=== PATIENT | female | born 1960 | race Hispanic/Latino ===

== ENCOUNTER 2016-08-28 15:37 | Inpatient (IN) | payer MEDICAID ==
[~2016-08-28] VITALS: Ht 144.8 cm; Wt 57.8 kg
[2016-08-28 15:46] VITALS: BP 159/88; PULSE 74; RESP 16; O2SAT 98
[2016-08-28 16:00] VITALS: BP 135/61; PULSE 79; RESP 18
[2016-08-28 16:41] LABS: BASOPHILS % (AUTO) 0.3 % (0-3); MONOCYTES % (AUTO) 7.4 % (4-12); Mean Corpuscular Hemoglobin 29.2 pg (27.0-35.0); Mean Corpuscular Volume 84.7 fL (81-100); NEUTROPHILS % (AUTO) 61.3 % (40-74); Platelet Count 300 bil/L (150-400)
--- NOTE | 2016-08-28 16:41 | DRSVH ---
PROCEDURE: X-RAY CHEST ONE VIEW, PORTABLE ([id number]) INDICATIONS: chest pain TECHNIQUE: One view of the chest was acquired. COMPARISON: 11/19/2008 FINDINGS: Surgical changes and devices: None. Lungs and pleura: No pleural effusions or pneumothorax. Eventration right hemidiaphragm. Lungs are c lear. Mediastinum: Mediastinal contours appear normal. Heart size is normal. Bones and chest wall: No suspicious bony lesions. Overlying soft tissues appear unremarkable. IMPRESSION: No acute cardiopulmonary abnormality Dictated by: Ever Gonzalez M.D. on 08/28/2016 at 16:39 Approved by: Ever Gonzalez M.D. on 08/28/2016 at 16:39
[2016-08-28 17:02] LABS: TROPONIN T < 0.010 ug/L (0.0-0.011)
[2016-08-28 17:12] LABS: Magnesium 1.7 mg/dL (1.6-2.6)
--- NOTE | 2016-08-28 17:26 | ED.REPORT ---
HPI-Chest Pain 40 and Over Date of Service Aug 28, 2016 ED Provider: Rogers Mccormack MD Pt is a 55 y.o. Urdu-speaking female with a hx of DM, hypothyroidism, and HLD who presents to the ED c/o intermittent chest pain, 3 episodes lasting approximately 5 minutes, onset 3 days ago. Pt states most recent episode was today around 1300 and occurred while she was walking up stairs. She is not currently experiencing any chest pain. She denies SOB, abdominal pain, nausea, vomiting, diarrhea, and cough. She also denies any heart hx.. Nursing Notes Stated Complaint: CHEST PAIN Chief Complaint: Chest Pain Nursing Notes Reviewed: Yes Allergies: Coded Allergies: No Known Allergies (Unverified , 08/28/16) Scheduled Cholecalciferol (Vitamin D3) (Vitamin D3) 2,000 Unit Capsule 2,000 UNITS PO DAILY Glipizide (Glipizide) 5 Mg Tablet 5 MG PO QAM Levothyroxine (Levothyroxine) 137 Mcg Tablet 137 MCG PO DAILY Lovastatin (Lovastatin) 40 Mg Tablet 40 MG PO QPM Metformin (Glucophage) 1,000 Mg Tablet 1,000 MG PO BIDWM General Time Seen by MD: 17:20 Chief Complaint Chest pain Hx Obtained From: Patient Arrived By: Walk-in Sudden in Onset?: Yes Symptom Duration: 1 - 15 minutes Location: : Substernal Quality: Painful Severity: Current: No pain currently Recent Healthcare: No recent doctor visit, No recent hospitalization Similar Sx Previous: No Past Medical History Past Medical History Reports: Diabetes mellitus, Hyperlipidemia Reports: Thyroid disease Past Surgical History None reported Ambulatory Status Independent Review of Systems Respiratory: Denies: Non-productive cough, Shortness of breath Cardiovascular: Reports: Chest pain GI: Denies: Abdominal pain, Diarrhea, Nausea, Vomiting Complete sys rev & neg: except as marked. Physical Exam Initial Vital Signs Vital Signs (First) Date Time Temp Pulse Resp B/P Pulse Ox O2 Delivery O2 Flow Rate FiO2 08/28/16 15:46 37.3 74 16 159/88 98 Room Air Initial VS: Reviewed Head / Eyes: Atraumatic, Normocephalic Extremities: Vascular intact, Neuro intact Skin: Warm, Dry, No cyanosis Neurologic: Alert, Oriented, Nonfocal Psychiatric: Mood/affect normal, Behavior normal, Normal thought content General/Constitutional: Awake, Alert, No acute distress, Well appearing, Well developed, Well hydrated, Well nourished, Not toxic appearing Respiratory / Chest: Atraumatic, Breath sounds NL, Breath sounds = bilat, No respiratory distress, No rales, No rhonchi, No wheezing, No stridor, No chest tenderness Cardiovascular: Heart rate NL, Regular rhythm, Heart sounds NL, No gallop, No murmurs, No rubs, Peripheral circulation NL No low Abdomen: Atraumatic, Soft, Non-tender, No distention Interpretation & Diagnostics Lab Results Interpretation Result Diagram: 08/28/16 1619 08/28/16 1619 Test 08/28/16 16:19 White Blood Count 7.0th/mm3 (3.8-10.1) Red Blood Count 4.90mil/mm3 (3.90-5.20) Hemoglobin 14.3g/dL (12.0-15.6) Hematocrit 41.5% (35.0-46.0) Mean Corpuscular Volume 84.7fL (81-100) Mean Corpuscular Hemoglobin 29.2pg (27.0-35.0) Mean Corpuscular Hemoglobin Concent 34.5% (32.0-37.0) Red Cell Distribution Width 12.4% (12.3-15.4) Platelet Count 300bil/L (150-400) Neutrophils (%) (Auto) 61.3% (40-74) Lymphocytes (%) (Auto) 28.6% (14-46) Monocytes (%) (Auto) 7.4% (4-12) Eosinophils (%) (Auto) 2.0% (0-5) Basophils (%) (Auto) 0.3% (0-3) Sodium Level 138mEq/L (134-144) Potassium Level 4.2mEq/L (3.5-5.2) Chloride Level 96mEq/L (97-108) Carbon Dioxide Level 27mmol/L (18-29) Blood Urea Nitrogen 9mg/dL (6-24) Creatinine 0.45mg/dL (0.57-1.00) Estimat Glomerular Filtration Rate 207mL/min (>59) Glucose Level 252mg/dL (60-99) Calcium Level 10.8mg/dL (8.5-10.1) Total Bilirubin 0.2mg/dL (0.0-1.2) Aspartate Amino Transf (AST/SGOT) 19U/L (0-50) Alanine Aminotransferase (ALT/SGPT) 31U/L (0-32) Alkaline Phosphatase 95U/L (25-150) Total Protein 8.0g/dL (6.4-8.4) Albumin 4.8g/dL (3.4-5.0) Hold [place]o Top Tube Received (Received) Point of Care Testing: Troponin normal General Lab Results Interp 1: CMP normal except (Glucose), CBC normal ECG Interpretation ECG Interpretation: No ST elevation Inferior Q waves T wave inversion in V1-V2 No prior ECG for comparison Time: 17:27 Interpreted by: ED physician Normal ECG Interpretation: Normal rate (73), Normal sinus rhythm X-Ray Chest Interpretation Chest Xray Interpretation: IMPRESSION: No acute cardiopulmonary abnormality Dictated by: Ever Gonzalez M.D. on 08/28/2016 at 16:39 Approved by: Ever Gonzalez M.D. on 08/28/2016 at 16:39 Re-Eval/Medical Decision Med Decision/Clinical Course In summary, the patient is a 55-year-old female with a history of type II diabetes, hyperlipidemia and hypothyroidism who presents to the emergency department for evaluation of several episodes of crushing/tearing substernal chest pain occurring in the setting of exertion and walking upstairs. Upon arrival to the emergency department she is afebrile, hemodynamically stable and without any active chest pain. EKG and chest x-ray were interpreted by myself as documented above. Laboratory studies notable as below: CBC unremarkable Glucose 252, CMP otherwise unremarkable Troponin negative At this time, the cause of the patient's chest pain is unclear. Her chest pain is not reproducible with palpation of the chest wall nor is her history suggestive of musculoskeletal chest pain. She has no recent major risk factors for pulmonary embolism nor is her presentation suggestive thereof. The nature of her pain is somewhat concerning for cardiac etiologies. She is at higher risk from a cardiac standpoint given her age, history of diabetes and history of hyperlipidemia. Initial screening EKG and troponin are negative. That being said she has had multiple bouts of severe chest pain occurring in the setting of exertion and I feel that she warrants admission for further workup of acute coronary syndrome and possible stress testing. The patient remained chest pain-free and hemodynamically stable. She was given 324 mg of aspirin. She was discussed with the admitting hospitalist and transferred in stable condition. Source of Hx: Old records Consultation : Referral / Consult Name: Brady Mata MD Consulted With: Hospitalist Call Returned at: 19:11 Note: Discussed pt condition, accepts admit. Counseled Regarding: Diagnosis, Lab results, Need for follow-up, When/why to return to ED Discharge & Departure Primary Impression: Exertional chest pain Additional Impressions: History of type 2 diabetes mellitus History of hyperlipidemia Disposition: Home Discharge Condition All VS Reviewed: Yes Condition: Stable Referrals: [facility] (PCP) Geremias Attestation Portions of this note were transcribed by Diann Mcpherson. I, Dr. Mccormack personally performed the history, physical exam and medical decision-making; I reviewed and confirmed the accuracy of the information in the transcribed note. Signed by: Geremias Tilley, 08/28/2016 and 1915. copies to: [facility] Rogers Mccormack MD Aug 28, 2016 17:26 DIANN MCPHERSON Aug 28, 2016 17:56 personally performed the history, physical exam and medical decision-making; I reviewed and confirmed the accuracy of the information in the transcribed note. Signed by: Geremias Tilley, 08/28/2016 and 1915. copies to: [facility] Rogers Mccormack MD Aug 28, 2016 17:26 DIANN MCPHERSON Aug 28, 2016 17:56
[2016-08-28] MEDS ORDERED: Ondansetron 2 mg/mL 2 mL Inj IVPUSH PRN (18:30)
[2016-08-28] MEDS ORDERED: Alum-Mag Hydrox-Simeth 30 mL Suspension PO PRN (18:30)
[2016-08-28] MEDS ORDERED: CHOL200047 PO (18:46)
[2016-08-28] MEDS ORDERED: LOVA40TA PO (18:46)
[2016-08-28] MEDS ORDERED: GLPZ5T PO (18:46)
[2016-08-28] MEDS ORDERED: METF1000 PO (18:46)
[2016-08-28] MEDS ORDERED: LEVO137T2 PO (18:46)
--- NOTE | 2016-08-28 19:14 | PCM.HPMED ---
Subjective Date of Service Aug 28, 2016 Primary Provider: Admitting Physician: [facility] Physician: Chief Complaint: Chest pain History of Present Illness: 55-year-old Faroese-speaking female whom I interviewed with the help of video chopped strand operator history of diabetes, hypothyroidism, hyperlipidemia who presents with 3 days of intermittent chest pain. When I press her to determine whether it is when she is walking or when she is sitting or when she gets up, she states that it does not matter. Sometimes it wakes her up from her sleep that was on Wednesday, at times happens when she gets up or she feels it coming on and it can happen when she is walking but is not consistently there when she is ambulating either. The episodes are retrosternal dull not radiating anywhere and not not associated with nausea, vomiting or diaphoresis Review of Systems: Patient denies any other symptoms other than chest pain Gen.: No fevers chills weight loss weight gain Eyes: no visual disturbances or blurring vision HEENT: No nose/throat drainage, no pain in ears or throat, no hearing loss Lymph: No lymph nodes noted Cardiac: , orthopnea, PND, palpitations , pedal edema or dyspnea on exertion, + + chest pain Pulmonary: no cough, wheezing or bringing up of sputum GI: No anorexia nausea vomiting blood or black in the stool : no dysuria hematuria urinary frequency or decrease in urine output Musculoskeletal: Joint swelling no joint pain no new muscle aches or back pain Neuro: No syncope, seizures no loss of consciousness no new focal weakness, numbness or tingling Psychiatric: New new anxiety insomnia or depression Endocrine: No new heat or cold intolerances polyuria or polydipsia Hematology: No lymphadenopathy or easy bleeding or bruising noted skin: No new rashes, stasis dermatitis Allergies Coded Allergies: No Known Allergies (Unverified , 08/28/16) Home Medications Scheduled Cholecalciferol (Vitamin D3) (Vitamin D3) 2,000 Unit Capsule 2,000 UNITS PO DAILY Glipizide (Glipizide) 5 Mg Tablet 5 MG PO QAM Levothyroxine (Levothyroxine) 137 Mcg Tablet 137 MCG PO DAILY Lovastatin (Lovastatin) 40 Mg Tablet 40 MG PO QPM Metformin (Glucophage) 1,000 Mg Tablet 1,000 MG PO BIDWM PMH Past Medical History Reports: Diabetes mellitus, Hyperlipidemia Reports: Thyroid disease History of dysphagia got a barium swallow in January 2016 Past Surgical History None reported Ambulatory Status Independent Family History No known history of early heart disease or cancer in her family Exam Vital Signs Vital Sign - Last Date Time Temp Pulse Resp B/P Pulse Ox O2 Delivery O2 Flow Rate FiO2 08/28/16 16:00 79 18 135/61 08/28/16 15:46 37.3 98 Room Air Exam Gen.- A+ O 3 no apparent distress. Mildly obese female Eyes- open conjunctiva clear, pupils equal nonicteric Mouth- oral mucosa moist, no exudate ENT- ears normal, nose normal Neck- supple/trach midline, JVD less than 8 cm CVS- RRR no murmur or gallop, no edema Lungs CTA, no wheezes or rhonchi history muscle usage GI- NABS/NT soft Musc- moving 4 no obvious deformity Neuro- cranial nerves II through XII intact to gross examination, nonfocal Skin- warm and dry, no rashes/lesions/wounds noted Psych- pleasant and appropriate, Lab and Diagnostics Labs 50 RBCs and moderate bacteria and greater than 20 casts Result Diagram: 08/28/16 1619 08/28/16 1619 X-Rays, CTs and MRIs CXR concurrently reviewed by me no acute abnormality 12-lead ECG EKG reviewed by me sinus rhythm rate of 73 QTC 410 ms there is suggestion of possible old inferior infarct perhaps from Q-wave in lead 3 and small Q wave in aVF no acute ST segment changes here Assessment & Plan 55-year-old female interviewed by video chopped strand operator. She gives a history of chest pain worsening for the last 4 days a few episodes lasting up to 5 minutes most severe today. She became scared and came to the hospital. The pain is not definitively exertional it occurs when she sitting down, when she gets up when she is walking she feels it does not make a difference what she is doing. All urine is dirty, it does not appear to be infected and she does not have any complaints or I am not treating it at this time. I believe it advisable to rule out cardiac etiology to this chest pain however it seems increasingly likely that this patient has a GI cause either GERD or esophageal spasm. Chest pain-patient at risk because of long-standing diabetes with atypical chest pain getting Myoview in the a.m. Diabetes-checking a hemoglobin A1c and putting the patient on subcutaneous sliding scale, holding her glyburide and metformin because she is going to be nothing by mouth in the morning. Dysphagia-patient may benefit from a GI consult and/or endoscopy Prophylaxis-DVT SCDs and heparin, GI not indicated Disposition- full code from home Brady Mata MD Aug 28, 2016 19:14
[2016-08-28] MEDS ORDERED: Polyethylene Glycol (PEG) 17 Gm Powder PO PRN (19:25)
[2016-08-28] MEDS ORDERED: Senna-Docusate 8.6-50 mg Tablet PO PRN (19:30)
[2016-08-28 19:45] VITALS: BP 122/62; PULSE 80; RESP 20; O2SAT 98
[2016-08-28 20:26] VITALS: BP 123/75; PULSE 79; RESP 16; O2SAT 95
[2016-08-28 20:44] LABS: Creatine Kinase 45 U/L (21-215); Magnesium 1.6 mg/dL (1.6-2.6)
[2016-08-28 20:52] LABS: TROPONIN T < 0.010 ug/L (0.0-0.011)
[2016-08-28] MEDS: Insulin Human REGular 300 Unit/3 mL Inj SUBQ SCH (21:37)
[2016-08-28] MEDS: 0.9% Sodium Chloride 1,000 ML IV SCH (21:37)
[2016-08-29] VITALS (7 sets, daily range): BP systolic 90–149; BP diastolic 65–93; PULSE 64–82; RESP 16–20; O2SAT 92–96
[2016-08-29] MEDS: Sodium Chloride LOK Flush 10 mL Syringe IVFLUSH SCH ×3 (00:30→16:30)
[2016-08-29 01:59] LABS: Creatine Kinase 33 U/L (21-215)
[2016-08-29] MEDS: Insulin Human REGular 300 Unit/3 mL Inj SUBQ SCH ×2 (02:30→08:14)
[2016-08-29 05:56] LABS: BASOPHILS % (AUTO) 0.3 % (0-3); EOSINOPHILS % (AUTO) 2.6 % (0-5); MONOCYTES % (AUTO) 7.9 % (4-12); Mean Corpuscular Volume 85.8 fL (81-100); NEUTROPHILS % (AUTO) 50.3 % (40-74); Platelet Count 282 bil/L (150-400)
--- NOTE | 2016-08-29 06:33 | NUR ---
Admit Patient admitted to room at 2014. Patient history translated by aerial photograph interpreter. Patient had been having chest pain for the past few days and was more severe today. Pain with and without activity. Pain resolved before arriving at the hospital. Patient alert x 3, denied any CP, SOB, nausea or any other symptoms.
[2016-08-29] MEDS: 0.9% Sodium Chloride 1,000 ML IV SCH ×2 (08:14→23:11)
--- NOTE | 2016-08-29 12:09 | NUR ---
Off Unit: Patient transported off unit to CVL @ approx 1100 accompanied by CVL tech and Petroleum Analyst. dental laboratory technician notified.
[2016-08-29] MEDS ORDERED: Glucose 40% Oral Gel 15 Gm Tube PO PRN (12:35)
[2016-08-29] MEDS: Insulin LISPRO 300 Unit/3 mL Inj SUBQ SCH ×3 (13:14→21:36)
--- NOTE | 2016-08-29 15:06 | NUR ---
Social Work: Screening Data: Pt is a 55 y/o female admitted for chest pain. Pt's PCP is Gladys, pt's insurance is self pay. EMR reviewed, pt discussed in rounds. SAW MAN called [employer] and left a message to make sure that they can see pt regarding self pay status. SAW MAN left a Amharic [facility] application for pt with nursing staff to deliver as pt was with a medical professional when SAW MAN attempted. No further d/c planning needs at this time. SAW MAN will continue to follow if needs arise. Assessment: Pt who is independent at baseline. Plan: Pt will d/c home via POV when medically stable. [facility] application given to pt. No further d/c planning needs at this time. SAW MAN will continue to follow if needs arise. SADIA Simon
--- NOTE | 2016-08-29 15:17 | PCM.PNMED ---
Subjective Date of Service Aug 29, 2016 Subjective pt remained chest pain free overnight Stress test suggestive of ischemic dz per , plan for cath tomorrow or Wednesday Exam Vital Signs Vital Sign - Last Date Time Temp Pulse Resp B/P Pulse Ox O2 Delivery O2 Flow Rate FiO2 08/29/16 10:04 64 08/29/16 05:35 37.0 16 90/ 92 Room Air Intake and Output 08/28/16 08/28/16 08/29/16 Cumulative From/Thru 15:00 23:00 07:00 08/28/16 15:46 - 08/29/16 06:44 Intake Total 707 ml 707 ml Balance 707 ml 707 ml IV Total 707 ml 707 ml Exam NAD, comfortably laying down on the bed no JVD, MMM, no LAD RRR, nl s1, s2 no mrg CTAB, no w,c S,ND,NT,normoactive BS+ warm, no edema, pulses 2/2 IVs and Medications Medications Reviewed: Medications were reviewed in detail Lab and Diagnostics Result Diagram: 08/29/16 0505 08/29/16 0505 X-Rays, CTs and MRIs CXR concurrently reviewed by me no acute abnormality 12-lead ECG [id number] Qwave in III, MURPHY in II,aVF<1mm, TWI v2. Flattened twave v3 Assessment & Plan 55-year-old female with diabetes, hyperlipidemia, no prior CAD presented with 2 episode of chest pain, each one lasted 5 Minutes spontaneously resolved, Acute, active Chest pain secondary to ACS, POA, grossly positive NM stress test 08/29 so terminated prematurely per , suspected LAD lesion, EKG-equivocal, trop [id number], no active chest pain. -appreciate cardiology input, tentatively plan for cardiac cath tomorrow or Wednesday -will follow official stress test result -asa, plavix, metoprolol 25 bid, , no heparin gtt per -FU TTE -nitro prn for chest pain chonic, stable DM, uncontrolled, a1c12.5, only on OHA, pt sees PCP 6mo ago, continue lispro SS , counseled on importance of glc control HTN, 150s on admission, likely diet controlled, stable HLD, continue high-intensity statin dvt ppx: HSQ Full code diet: cardiac, likely NPO after MN for cath dispo: based on cardiac w/u 2-3 more days VTE Mechanical Devices: Intermittant Pneumatic CD Time spent 35 minutes Dereck Pardo MD Aug 29, 2016 15:17
--- NOTE | 2016-08-29 17:14 | DRSVH ---
[facility] [address] [place] [address] Echocardiogram Report Name: REN MENA Study Date: 08/29/2016 Height: 57 in Hospital Exam Location: [facility] Weight: 127 lb Gender: Female BSA: 1.5 m2 : 1960 Age: 55 yrs BP: 113/68 mmHg Reason For Study: ACS Performed By: Darron Pagan Referring Physician: JANE BERMUDEZ Interpretation Summary The left ventricle is normal in size, wall thickness, and systolic function without any focal wall motion abnormalities. The ejection fraction is estimated to be 60-65%. The right ventricle is normal in size, thickness and function. Pulmonary artery pressures cannot be estimated because of the lack of a measurable TR jet velocity. The left atrium grossly appears normal in size. The right atrium grossly appears normal in size. There is no significant valvular heart disease. The aortic root is normal size. Procedure: A two-dimensional transthoracic echocardiogram with color flow and Doppler was performed. The study quality was technically adequate. There is no prior echocardiogram noted for this patient. The patient was in normal sinus rhythm during the exam. Left Ventricle: The left ventricle is normal in size, wall thickness, and systolic function without any focal wall motion abnormalities. The ejection fraction is estimated to be 60-65%. Assessment of diastolic parameters indicates normal left ventricular diastolic function and normal filling pressures. Right Ventricle: The right ventricle is normal in size, thickness and function. Atria: The left atrium grossly appears normal in size. The right atrium grossly appears normal in size. There is no Doppler evidence for an atrial septal defect. Mitral Valve: The mitral valve is grossly normal. There is no mitral regurgitation noted. Aortic Valve: The aortic valve is normal in structure and function. No aortic regurgitation is present. Tricuspid Valve: The tricuspid valve is not well visualized, but is grossly normal. Pulmonary artery pressures cannot be estimated because of the lack of a measurable TR jet velocity. Pulmonic Valve: The pulmonic valve is not well visualized. There is no pulmonic valvular regurgitation. There is no significant valvular heart disease. Great Vessels: The aortic root is normal size. The dimensions of the ascending aorta are normal. The pulmonary artery is not well visualized, but is probably normal size. The IVC is of normal diameter and collapses greater than 50% with a sniff. This suggests a low right atrial pressure of 3 mm Hg. Pericardium/ Pleura There is no pericardial effusion. There is no pleural effusion. MMode/2D Measurements & Calculations LVIDd LVOT diam LV stafford. diameter/BSA LV sys. diameter/BSA : 4.3 cm (cm/m^2): 2.9 (cm/m^2): 2.0 LVIDs Ao root diam : 2.9 cm FS: 32.5 % asc Aorta Diam EPSS : 0.3cm IVSd : 0.7cm LVPWd : 0.7cm Doppler Measurements & Calculations Ao V2 max: 134.7 cm/secMV E max naren MV E/A: 1.1 PA V2 max Ao max P.3 mmHg : 90.9 cm/sec Med Peak E' Naren : 63.0 cm/sec Ao mean P.0 mmHg MV A max naren PA mean PG LVOT Max Naren : 82.4 cm/sec E/E' med: 14.9 : 0.95 mmHg : 91.7 cm/sec Lat Peak E' Naren KEVIN(I,D): 1.8 cm E/E' lat: 10.0 sev ratio: 0.68 MV A dur: 0.13 sec MV dec time: 0.17 sec Ao V2 mean LV V1 max PG PA V2 mean : 96.3 cm/sec : 47.5 cm/sec Ao V2 VTI: 27.0 cmLV V1 VTI: 18.5 cm PA pr(Accel) : 57.2 mmHg KEVIN(V,D): 1.8 cm2 KEVIN indexed to BSA E/e' average (cm^2/m^2): 1.2 : 12.5 Reading Physician:RICO
--- NOTE | 2016-08-29 18:26 | PCM.CHPCAR ---
Consult Subjective Date of service Aug 29, 2016 Date of admit Aug 28, 2016 at 19:24 Provider Requesting Consult Requesting Provider: Dereck Pardo MD Primary Care Physician Primary Care Provider: [facility],Count includes the [facility] Chief Complaint Chest pain History of Present Illness This is a delightful 55 y/o female who speaks predominantly Romanian. I was asked to see the patient after she had her stress test completed. I personally interpreted the stress myocardial perfusion study this afternoon and it was severely abnormal. It showed a normal LVEF and LV wall motion but she had classic exertional anginal, significant ST depressions, and large and moderately intense perfusion defect along the entire LAD territory. She has complained of her chest pain during rest and stress. At this moment, she is asymptomatic. She has significant risk factors such as HLD and long standing DM type II. She has never had any prior workup for CAD in the past. I have also reviewed her echocardiogram and that showed no LV wall motion abnormalities and normal LVEF. No significant valvular heart disease was present. Patient denies any hx of bleeding, anemia or upcoming surgeries. Review of Systems General: Reports: Change in exercise capacity [employer] Denies: Fatigue Eyes: Denies: Problem or recent change in eyes Ears, Nose, Mouth & Throat: Denies: Any hearing loss Respiratory: Reports: Dyspnea with exertion Denies: Orthopnea or PND Significant dyspnea Cardiovascular: Reports: Chest Discomfort Chest discomfort typical for angina Gastrointestinal: Denies: Recent melena or hematochezia Ulcers or GI blood loss Genitourinary: Denies: Hematuria Urinary symptoms Musculoskeletal: Denies: Significant joint or back problems Significant myalgias Neurological: Denies: Any history of stroke/TIA symptoms Psychiatric: Denies: Anxiety Depression Endocrine: Denies: Heat or cold intolerance Integumentary: Denies: Any change in hair or nails Hematologic/Immunologic: Denies: Recent history of anemia PMH Past Medical History Reports: Diabetes mellitus, Hyperlipidemia Reports: Thyroid disease History of dysphagia got a barium swallow in January 2016 Bedside Blood Glucose: 203 Scheduled Cholecalciferol (Vitamin D3) (Vitamin D3) 2,000 Unit Capsule 2,000 UNITS PO DAILY (Reported) Glipizide (Glipizide) 5 Mg Tablet 5 MG PO QAM (Reported) Levothyroxine (Levothyroxine) 137 Mcg Tablet 137 MCG PO DAILY (Reported) Lovastatin (Lovastatin) 40 Mg Tablet 40 MG PO QPM (Reported) Metformin (Glucophage) 1,000 Mg Tablet 1,000 MG PO BIDWM (Reported) Current Inpatient Medications Current Medications Al Hydrox/Mg Hydrox/Simethicone 30 ml Q6 PRN PO; Start 08/28/16 at 18:30 Ondansetron HCl Dose range: 4 mg to 8 mg Q4H PRN IVPUSH; Start 08/28/16 at 18:30 Acetaminophen 975 mg Q6H PRN PO; Start 08/28/16 at 18:30 Glipizide 5 mg DAILY PO; Start 08/29/16 at 08:30; Stop 08/29/16 at 08:30; Status DC Levothyroxine Sodium 137 mcg 0630 PO Last administered on 08/29/16 06:44; Admin Dose 137 MCG; Start 08/29/16 at 06:30 Atorvastatin Calcium 80 mg HS PO Last administered on 08/28/16 21:36; Admin Dose 80 MG; Start 08/28/16 at 21:00 Metformin HCl 1,000 mg BIDWM PO; Start 08/29/16 at 08:00; Stop 08/29/16 at 08:00; Status DC Insulin Human Regular * Low Dose Insulin Algori... Q6 SUBQ Last administered on 08/29/16 08:14; Admin Dose 2 UNIT; Start 08/28/16 at 20:30; Stop 08/29/16 at 12:43 ; Status DC Senna 17.2 mg BID PRN PO; Start 08/28/16 at 19:25 Polyethylene Glycol 17 gm DAILY PRN PO; Start 08/28/16 at 19:25 Enoxaparin Sodium 40 mg DAILY SUBQ Last administered on 08/29/16 08:15; Admin Dose 40 MG; Start 08/29/16 at 08:30 Sodium Chloride 10 ml 10 ml POLLY IVFLUSH Last administered on 08/29/16 00:30; Admin Dose 10 ML; Start 08/29/16 at 00:30 Sodium Chloride 1,000 ml @ 80 mls/hr [id number] IV Last administered on 08/29/16 08:14; Admin Dose 80 MLS/HR; Start 08/28/16 at 19:27 Aspirin 81 mg DAILY PO Last administered on 08/29/16 08:13; Admin Dose 81 MG; Start 08/29/16 at 08:30 Lisinopril 2.5 mg BID PO Last administered on 08/28/16 21:36; Admin Dose 2.5 MG ; Start 08/28/16 at 20:30; Stop 08/29/16 at 07:54; Status DC Metoprolol Tartrate 12.5 mg Q6 PO Last administered on 08/28/16 21:36; Admin Dose 12.5 MG; Start 08/28/16 at 20:30; Stop 08/29/16 at 13:37; Status DC Senna 1 tablet BID PRN PO; Start 08/28/16 at 19:30 Nitroglycerin 0.4 mg Q5MIN PRN SL; Start 08/28/16 at 19:30 Morphine Sulfate 1-5 mg prn pain not relie... Q5M PRN IVPUSH; Start 08/28/16 at 19:30 Insulin Human Lispro Nutritional Dose to be given pr... [facility] SUBQ Last administered on 08/29/16 16:44; Admin Dose 3 UNIT; Start 08/29/16 at 12:43 Metoprolol Tartrate 25 mg Q12 PO; Start 08/29/16 at 20:30 Clopidogrel Bisulfate 75 mg DAILY PO; Start 08/30/16 at 08:30 Lorazepam 1 mg ONCE PRN IVPUSH; Start 08/30/16 at 06:00; Stop 08/31/16 at 06:01 Allergies: Coded Allergies: No Known Allergies (Unverified , 08/28/16) Family History Family History No known history of early heart disease or cancer in her family Social History Hx Alcohol Use: NoHx Substance Use: NoHx Tobacco Use: No Smoking Status: Never Smoker Living Arrangement: with Family Exam Vital Signs Vital Sign - Last Date Time Temp Pulse Resp B/P Pulse Ox O2 Delivery O2 Flow Rate FiO2 08/29/16 16:59 36.9 80 18 149/93 92 Room Air Intake and Output 08/28/16 08/28/16 08/29/16 Cumulative From/Thru 15:00 23:00 07:00 08/28/16 15:46 - 08/29/16 06:44 Intake Total 707 ml 707 ml Balance 707 ml 707 ml IV Total 707 ml 707 ml General: Pleasant Cooperative Mildly obese Skin: Warm & dry to touch Head: Normocephalic Eye: EOMS intact Sclera white Neck: No JVD Ears, Nose & Throat: Ears no gross abnormalities Nose no gross abnormalities Chest: Clear auscultation w/o rales/wheeze Cardiac: Normal non-displaced apical impulse Regular rhythm Normal S1 and S2 No murmurs Pulses: Pulses full/equal all extremities Abdomen: Soft, non-distended, non-tender Extremities: Warm w/o deformities,erythema noted Neurological: Alert & oriented Psychological: Memory grossly intact Oriented to time, place and person Lab and Diagnostics Labs CBC Test 08/29/16 05:05 White Blood Count 6.6th/mm3 (3.8-10.1) Red Blood Count 4.31mil/mm3 (3.90-5.20) Hemoglobin 12.5g/dL (12.0-15.6) Hematocrit 37.0% (35.0-46.0) Mean Corpuscular Volume 85.8fL (81-100) Mean Corpuscular Hemoglobin 29.0pg (27.0-35.0) Mean Corpuscular Hemoglobin Concent 33.8% (32.0-37.0) Red Cell Distribution Width 12.5% (12.3-15.4) Platelet Count 282bil/L (150-400) Neutrophils (%) (Auto) 50.3% (40-74) Lymphocytes (%) (Auto) 38.4% (14-46) Monocytes (%) (Auto) 7.9% (4-12) Eosinophils (%) (Auto) 2.6% (0-5) Basophils (%) (Auto) 0.3% (0-3) CMP Test 08/28/16 16:19 08/28/16 19:54 08/29/16 01:20 08/29/16 05:05 Hemoglobin A1c 12.5% Total Bilirubin 0.2mg/dL Aspartate Amino Transf (AST/SGOT) 19U/L Alanine Aminotransferase (ALT/SGPT) 31U/L Alkaline Phosphatase 95U/L Total Protein 8.0g/dL Albumin 4.8g/dL Hold [place] Top Tube Received Magnesium Level 1.6mg/dL Thyroid Stimulating Hormone (TSH) 1.370uIU/mL Total Creatine Kinase 33U/L Creatine Kinase MB 1.0ng/mL Creatine Kinase MB % % Troponin T 0.010ug/L Sodium Level 137mEq/L Potassium Level 4.4mEq/L Chloride Level 99mEq/L Carbon Dioxide Level 26mmol/L Blood Urea Nitrogen 10mg/dL Creatinine 0.46mg/dL Estimat Glomerular Filtration Rate 202mL/min Glucose Level 251mg/dL Calcium Level 9.4mg/dL Triglycerides Level 215mg/dL Cholesterol Level 230mg/dL LDL Cholesterol, Calculated 149.000mg/dL VLDL Cholesterol 43.000mg/dL HDL Cholesterol 38mg/dL Cholesterol/HDL Ratio 6.05 Result Diagram: 08/29/16 0505 08/29/16 050 12-lead ECG NSR with no pathological Q waves Assessment & Plan Problems: (1) Unstable angina Plan: Currently she is asymptomatic. There are no acute EKG changes. We have started her on BB, ASA, Plavix, and atorvastatin. We will see if we can perform the coronary angiogram tomorrow, if not, then Wednesday. She was explained about the details of the procedure and I showed her a video as well. She understands the risks involve as well. She wishes to proceed which I certainly recommend based on her severely abnormal stress images. Please keep patient NPO past midnight in case we take her to the label maker tomorrow. Status: Acute ICD Code: I20.0 (2) Hyperlipidemia Plan: Titrate atorvastatin to 80 mg po qhs due to her risk factors. Status: Chronic ICD Code: E78.5 (3) Hypothyroidism Status: Chronic ICD Code: E03.9 (4) History of type 2 diabetes mellitus Status: Chronic ICD Code: Z86.39 VTE Mechanical Devices: Intermittant Pneumatic CD Resuscitation Status: CPR: Attempt Resuscitation Time spent 80 minutes Copies to: [facility] Kieran Smith MD Aug 29, 2016 18:26
[2016-08-30] VITALS (9 sets, daily range): BP systolic 103–142; BP diastolic 67–81; PULSE 60–78; RESP 16–18; O2SAT 95–98
[2016-08-30] MEDS: Sodium Chloride LOK Flush 10 mL Syringe IVFLUSH SCH ×3 (00:30→16:14)
[2016-08-30 06:49] LABS: BASOPHILS % (AUTO) 0.2 % (0-3); EOSINOPHILS % (AUTO) 3.1 % (0-5); MONOCYTES % (AUTO) 8.5 % (4-12); Mean Corpuscular Hemoglobin 28.9 pg (27.0-35.0); Mean Corpuscular Volume 86.4 fL (81-100); NEUTROPHILS % (AUTO) 49.6 % (40-74); Platelet Count 274 bil/L (150-400)
[2016-08-30 06:51] LABS: Magnesium 1.6 mg/dL (1.6-2.6); Phosphorus 4.5 mg/dL (2.5-4.9)
[2016-08-30] MEDS: Insulin LISPRO 300 Unit/3 mL Inj SUBQ SCH ×4 (08:44→21:58)
--- NOTE | 2016-08-30 09:54 | PCM.PNCARD ---
Subjective Date of service Aug 30, 2016 Chief Complaint Chest pain History of Present Illness No episodes of chest pain overnight. Tolerating her new cardiac meds. Constitutional: Denies: Chills, Fever ENT: Denies: Ear Pain Eyes: Denies: Blurred Vision Cardiovascular: Denies: Chest Pain Respiratory: Denies: Cough Neurological: Denies: Confusion Endocrine: Reports: Blood Glucose Review Exam Vital Signs Vital Sign - Last Date Time Temp Pulse Resp B/P Pulse Ox O2 Delivery O2 Flow Rate FiO2 08/30/16 09:11 36.7 60 18 119/73 96 Room Air Intake and Output 08/29/16 08/29/16 08/30/16 Cumulative From/Thru 15:00 23:00 07:00 08/28/16 15:46 - 08/30/16 06:44 Intake Total 300 ml 1197 ml 1477 ml 3681 ml Output Total 200 ml 1600 ml 550 ml 2350 ml Balance 100 ml -403 ml 927 ml 1331 ml Intake Oral 300 ml 600 ml 400 ml 1300 ml IV Total 597 ml 1077 ml 2381 ml Output Urine Total 200 ml 1600 ml 550 ml 2350 ml General: Pleasant Cooperative Skin: Warm & dry to touch Neck: JVP normal Cardiac: Regular rhythm Pulses: Both femoral pulses 2+ Extremities: Warm w/o deformities,erythema noted Neurological: Alert & oriented Lab and Diagnostics Labs CBC Test 08/30/16 06:07 White Blood Count 5.2th/mm3 (3.8-10.1) Red Blood Count 4.19mil/mm3 (3.90-5.20) Hemoglobin 12.1g/dL (12.0-15.6) Hematocrit 36.2% (35.0-46.0) Mean Corpuscular Volume 86.4fL (81-100) Mean Corpuscular Hemoglobin 28.9pg (27.0-35.0) Mean Corpuscular Hemoglobin Concent 33.4% (32.0-37.0) Red Cell Distribution Width 12.4% (12.3-15.4) Platelet Count 274bil/L (150-400) Neutrophils (%) (Auto) 49.6% (40-74) Lymphocytes (%) (Auto) 38.4% (14-46) Monocytes (%) (Auto) 8.5% (4-12) Eosinophils (%) (Auto) 3.1% (0-5) Basophils (%) (Auto) 0.2% (0-3) CMP Test 08/28/16 16:19 08/28/16 19:54 08/29/16 01:20 08/29/16 05:05 Hemoglobin A1c 12.5% Hold [place] Top Tube Received Thyroid Stimulating Hormone (TSH) 1.370uIU/mL Total Creatine Kinase 33U/L Creatine Kinase MB 1.0ng/mL Creatine Kinase MB % % Troponin T 0.010ug/L Triglycerides Level 215mg/dL Cholesterol Level 230mg/dL LDL Cholesterol, Calculated 149.000mg/dL VLDL Cholesterol 43.000mg/dL HDL Cholesterol 38mg/dL Cholesterol/HDL Ratio 6.05 Test 08/30/16 06:07 Sodium Level 143mEq/L Potassium Level 4.2mEq/L Chloride Level 105mEq/L Carbon Dioxide Level 27mmol/L Blood Urea Nitrogen 14mg/dL Creatinine 0.45mg/dL Estimat Glomerular Filtration Rate 207mL/min Glucose Level 234mg/dL Calcium Level 9.0mg/dL Phosphorus Level 4.5mg/dL Magnesium Level 1.6mg/dL Total Bilirubin 0.4mg/dL Aspartate Amino Transf (AST/SGOT) 15U/L Alanine Aminotransferase (ALT/SGPT) 24U/L Alkaline Phosphatase 63U/L Total Protein 6.0g/dL Albumin 3.6g/dL Result Diagram: 08/30/1607 08/30/16606 Assessment & Plan Problems: (1) Unstable angina Plan: Stable for now. She will go ahead and eat breakfast today since she has bee stable and will plan for [facility] tomorrow. She will need to stay NPO past midnight. Dr. Joe will do the procedure. Status: Acute ICD Code: I20.0 (2) Hyperlipidemia Status: Chronic ICD Code: E78.5 (3) Hypothyroidism Status: Chronic ICD Code: E03.9 (4) History of type 2 diabetes mellitus Status: Chronic ICD Code: Z86.39 Cardiology Plan: Catherization, Lipid assessment & treatment VTE Mechanical Devices: Intermittant Pneumatic CD Resuscitation Status: CPR: Attempt Resuscitation Time spent 15 minutes copies to: Irasema Vasquez MD, Oscar J MD Aug 30, 2016 09:54
--- NOTE | 2016-08-30 11:03 | PCM.PNMED ---
Subjective Date of Service Aug 30, 2016 Subjective pt denied any episode of chest pain, tentative plan for cath on Wednesday Exam Vital Signs Vital Sign - Last Date Time Temp Pulse Resp B/P Pulse Ox O2 Delivery O2 Flow Rate FiO2 08/30/16 10:08 63 08/30/16 09:11 36.7 18 119/73 96 Room Air Intake and Output 08/29/16 08/29/16 08/30/16 Cumulative From/Thru 15:00 23:00 07:00 08/28/16 15:46 - 08/30/16 06:44 Intake Total 300 ml 1197 ml 1477 ml 3681 ml Output Total 200 ml 1600 ml 550 ml 2350 ml Balance 100 ml -403 ml 927 ml 1331 ml Intake Oral 300 ml 600 ml 400 ml 1300 ml IV Total 597 ml 1077 ml 2381 ml Output Urine Total 200 ml 1600 ml 550 ml 2350 ml Exam NAD, comfortably laying down on the bed no JVD, MMM, no LAD RRR, nl s1, s2 no mrg CTAB, no w,c S,ND,NT,normoactive BS+ warm, no edema, pulses 2/2 IVs and Medications Medications Reviewed: Medications were reviewed in detail Lab and Diagnostics Result Diagram: 08/30/16 0607 08/30/16 0607 X-Rays, CTs and MRIs CXR concurrently reviewed by me no acute abnormality 12-lead ECG [id number] Qwave in III, MURPHY in II,aVF<1mm, TWI v2. Flattened twave v3 Cardiac Echo Impressions Echocardiogram Report Name: REN MENA Study Date: 08/29/2016 Height: 57 in Hospital Exam Location: [facility] Weight: 127 lb Gender: Female BSA: 1.5 m2 : 1960 Age: 55 yrs BP: 113/68 mmHg Reason For Study: ACS Performed By: Darron Pagan Referring Physician: DERECK BERMUDEZ Interpretation Summary The left ventricle is normal in size, wall thickness, and systolic function without any focal wall motion abnormalities. The ejection fraction is estimated to be 60-65%. The right ventricle is normal in size, thickness and function. Pulmonary artery pressures cannot be estimated because of the lack of a measurable TR jet velocity. The left atrium grossly appears normal in size. The right atrium grossly appears normal in size. There is no significant valvular heart disease. The aortic root is normal size. Assessment & Plan 55-year-old female with diabetes, hyperlipidemia, no prior CAD presented with 2 episode of chest pain, each one lasted 5 Minutes spontaneously resolved, Acute, active Chest pain secondary to ACS, POA, grossly positive NM stress test 08/29 so terminated prematurely per , suspected LAD lesion, EKG-equivocal, trop [id number], no active chest pain. TTE unremarkable. -appreciate cardiology input, tentatively plan for cardiac cath Wednesday -will follow official stress test result -asa, plavix, metoprolol 25 bid, [id number], no heparin gtt per -nitro prn for chest pain chonic, stable DM, uncontrolled, a1c12.5, only on OHA, pt sees PCP 6mo ago, continue lispro SS , counseled on importance of glc control HTN, 150s on admission, likely diet controlled, stable HLD, continue high-intensity statin dvt ppx: HSQ Full code diet: cardiac, NPO after MN for cath dispo: Wednesday after cath VTE Mechanical Devices: Intermittant Pneumatic CD Resuscitation Status: CPR: Attempt Resuscitation Time spent 35min Dereck Bermudez MD Aug 30, 2016 11:03
[2016-08-30] MEDS: 0.9% Sodium Chloride 1,000 ML IV SCH ×2 (11:43→21:49)
--- NOTE | 2016-08-30 18:46 | NUR ---
Constipation: Patient complained of trouble having a BM. Warm prune juice provided. Will pass on to NOC shift.
[2016-08-31] VITALS (17 sets, daily range): BP systolic 95–196; BP diastolic 57–112; PULSE 58–86; RESP 14–20; O2SAT 91–100
[2016-08-31] MEDS: Sodium Chloride LOK Flush 10 mL Syringe IVFLUSH SCH ×3 (00:30→21:46)
--- NOTE | 2016-08-31 03:39 | NUR ---
No pain, BM: Pt has denied pain through the night, been getting up independently in room. Denies shortness of breath. States having a BM after the prune juice given on previous shift. Has been NPO since midnight for heart cath today.
[2016-08-31 05:25] LABS: BASOPHILS % (AUTO) 0.2 % (0-3); EOSINOPHILS % (AUTO) 2.8 % (0-5); MONOCYTES % (AUTO) 6.5 % (4-12); Mean Corpuscular Hemoglobin 29.9 pg (27.0-35.0); Mean Corpuscular Volume 85.6 fL (81-100); NEUTROPHILS % (AUTO) 52.6 % (40-74); Platelet Count 273 bil/L (150-400)
[2016-08-31 06:04] LABS: Magnesium 1.7 mg/dL (1.6-2.6); Phosphorus 4.3 mg/dL (2.5-4.9)
[2016-08-31] MEDS: Insulin LISPRO 300 Unit/3 mL Inj SUBQ SCH ×4 (08:04→22:31)
--- NOTE | 2016-08-31 10:32 | PROG NOTE ---
[address] [address] PROGRESS NOTE PATIENT: REN MENA : 1960 MR#: [id number] ADMIT: 08/28/2016 JOB ID: [id number] DATE: 08/28/2016 SUBJECTIVE: The patient is a 55-year-old, Latvian-speaking lady, who presented with acute coronary syndrome. I talked to her via a periodicals clerk. She denies any recurrent chest discomfort for the past two days. She denies orthopnea, PND, palpitation, or syncope. PHYSICAL EXAMINATION: Temperature is 36.9. Blood pressure is 115/69. Pulse 74. Body weight is 57.9 kg. Head and face have normal configuration. Anicteric sclerae. Moist mucosa. Neck supple. No jugular venous distention or carotid bruits. Lungs are clear to auscultation. Heart. The first and second heart sound normal. No gallop or murmur. Abdomen: Soft, nontender. Extremities: No clubbing, cyanosis, or edema. Peripheral pulses are equal bilaterally. Neurologic: Grossly intact. BLOOD TESTS: Show hemoglobin 12.5, WBC 5.7, platelets 273. Sodium 139, potassium 3.9, chloride 101, bicarb 26, BUN 11, creatinine 0.36, glucose 220. Hemoglobin A1c 12.5. IMPRESSION: 1. Acute coronary syndrome. 2. Abnormal exercise stress sestamibi, consistent with anterior ischemia. 3. Uncontrolled diabetes. 4. Hypertension. 5. Hypercholesterolemia. 6. Overweight, with a BMI of 27.6 kg. PLAN: Subcutaneous Lovenox will be withheld. She is currently receiving aspirin, Plavix, metoprolol, and atorvastatin. I will add a small dose of CAYDEN inhibitor. She will undergo coronary angiogram and possible percutaneous coronary intervention. The risks and benefits of procedure have been explained to the patient. She understands and agrees to proceed with the procedure. ANGELES
[2016-08-31] MEDS: 0.9% Sodium Chloride 1,000 ML IV SCH (11:19)
[2016-08-31] MEDS ORDERED: Heparin 1,000 Units/500 mL NS Premix IV ONE (13:26)
[2016-08-31] MEDS ORDERED: Heparin 5,000 Units/500 mL NS Premix IV ONE ×2 (13:26→13:28)
[2016-08-31] MEDS ORDERED: Heparin 1,000 Unit/mL 10 mL Inj ONE ×2 (13:27→14:43)
[2016-08-31] MEDS ORDERED: fentaNYL-PF 50 mCg/mL 2 mL Inj ONE (13:27)
[2016-08-31] MEDS ORDERED: Nitroglycerin 50,000 mcg/250 mL D5W Premix IV ONE (13:32)
--- NOTE | 2016-08-31 14:03 | NUR ---
Off Unit: Patient transported via bed to laborer shipyard accompanied by laborer shipyard staff @ approx 1400. optics manufacturing technician notified. laborer construction or leak gang staff aware of elevated BP and low grade temp. Addendum: 08/31/16 at 1825 by NURIS MILLER RN Notified that patient will be transferring to PCC room 2005 post HC. Report called to Shu Overton RN @ 1820. optics manufacturing technician notified.
--- NOTE | 2016-08-31 14:29 | NUR ---
Social Work-readiness for discharge: Data:EMR Reviewed. Pt is on day 3 of hospitalization for chest pain per H&P. Per MD, pt may be ready to discharge later today or tomorrow. Pt resides at home and has supportive family. [facility] care application has been provided. Pt to have heart cath today. No anticipated discharge needs. SW will continue to follow if needs arise. Assessment:Pt who is independent at baseline. Plan:Pt to discharge home when medically stable via POV. [facility] care application has been provided. No anticipated discharge needs. SW will continue to follow if needs arise. SADIA Perdomo
[2016-08-31] MEDS ORDERED: Protamine Sulfate 10 mg/mL 5 mL Inj ONE (15:09)
[2016-08-31] MEDS ORDERED: 0.9% Sodium Chloride 50 ML ONE (15:10)
--- NOTE | 2016-08-31 16:49 | PCM.PNMED ---
Subjective Date of Service Aug 31, 2016 Subjective pt denied overnight chest pain, waiting for cath today Exam Vital Signs Vital Sign - Last Date Time Temp Pulse Resp B/P Pulse Ox O2 Delivery O2 Flow Rate FiO2 08/31/16 16:15 60 16 125/71 08/31/16 16:15 96 Nasal Cannula 2.00 08/31/16 13:39 37.2 Intake and Output 08/30/16 08/30/16 08/31/16 Cumulative From/Thru 15:00 23:00 07:00 08/28/16 15:46 - 08/31/16 06:47 Intake Total 1877 ml 1378 ml 6936 ml Output Total 400 ml 2750 ml Balance 1877 ml 978 ml 4186 ml Intake Oral 1120 ml 200 ml 2620 ml IV Total 757 ml 1178 ml 4316 ml Output Urine Total 400 ml 2750 ml # Voids 3 3 # Bowel Movements 0 0 Exam NAD, comfortably laying down on the bed no JVD, MMM, no LAD RRR, nl s1, s2 no mrg CTAB, no w,c S,ND,NT,normoactive BS+ warm, no edema, pulses 2/2 IVs and Medications Medications Reviewed: Medications were reviewed in detail Lab and Diagnostics Result Diagram: 08/31/16 0505 08/31/16 0505 X-Rays, CTs and MRIs CXR concurrently reviewed by me no acute abnormality 12-lead ECG [id number] Qwave in III, MURPHY in II,aVF<1mm, TWI v2. Flattened twave v3 Cardiac Echo Impressions Echocardiogram Report Name: REN MENA Study Date: 08/29/2016 Height: 57 in Hospital Exam Location: [facility] Weight: 127 lb Gender: Female BSA: 1.5 m2 : 1960 Age: 55 yrs BP: 113/68 mmHg Reason For Study: ACS Performed By: Darron Pagan Referring Physician: DERECK BERMUDEZ Interpretation Summary The left ventricle is normal in size, wall thickness, and systolic function without any focal wall motion abnormalities. The ejection fraction is estimated to be 60-65%. The right ventricle is normal in size, thickness and function. Pulmonary artery pressures cannot be estimated because of the lack of a measurable TR jet velocity. The left atrium grossly appears normal in size. The right atrium grossly appears normal in size. There is no significant valvular heart disease. The aortic root is normal size. Assessment & Plan 55-year-old female with diabetes, hyperlipidemia, no prior CAD presented with 2 episode of chest pain, each one lasted 5 Minutes spontaneously resolved, Acute, active Chest pain secondary to ACS, POA, grossly positive NM stress test 08/29 so terminated prematurely per , suspected LAD lesion, EKG-equivocal, trop [id number], no active chest pain. TTE unremarkable. -appreciate cardiology input, tentatively plan for cardiac cath today -will follow official stress test result -asa, plavix, metoprolol 25 bid, [id number], no heparin gtt per -nitro prn for chest pain chonic, stable DM, uncontrolled, a1c12.5, only on OHA, pt sees PCP 6mo ago, continue lispro SS , counseled on importance of glc control HTN, 150s on admission, likely diet controlled, stable HLD, continue high-intensity statin dvt ppx: HSQ Full code diet:resume cardiac diet dispo: tomorrow if pt remains stable VTE Mechanical Devices: Intermittant Pneumatic CD Resuscitation Status: CPR: Attempt Resuscitation Time spent 35min Dereck Bermudez MD Aug 31, 2016 16:49
--- NOTE | 2016-08-31 16:49 | NUR ---
Received Received from slab puller about 1600. Communication through linux consultant. VSS. Right groin without bleeding or hematoma. Denies pain. Voided per bedpan without change in groin. Taking po fluids well. Continue to monitor per orders.
--- NOTE | 2016-08-31 19:23 | CS94 ---
[address] [address] DIAGNOSTIC CARDIAC CATHETERIZATION PATIENT: REN MENA : 1960 MR#: [id number] ADMIT: 08/28/2016 JOB ID: [id number] SERVICE DATE: 08/31/2016 PATIENT PROFILE: The patient is a 55-year-old lady with uncontrolled diabetes. She presented with non-ST elevated myocardial infarction. PROCEDURE: 1. Retrograde left heart catheterization. 2. Selective coronary angiography. 3. Vascular closure device with Angio-Seal. COMPLICATIONS: None. METHOD: Retrograde left heart catheterization was performed from the right groin under 1% lidocaine local anesthesia using a 6-[place] sheath. Selective coronary angiogram was performed in multiple projections, including cranial and caudal angulations with hand injected contrast via JL-3 and 3DRC catheters. It was somewhat difficult to engage the left coronary ostium due to pressure damping. A Run-through wire was placed inside the circumflex artery in order to hold the catheter into position. A 5-[place] angulated pigtail catheter was advanced to the left ventricle and left ventricular pressure was obtained. Right femoral angiogram was performed before sheath removal, hemostasis was achieved by using an Angio-Seal closure device. She was transferred to [facility] in good condition. TOTAL CONTRAST USED: 80 cc. FLUOROSCOPY TIME: 4.5 minutes. RESULT: 1. Left main coronary artery has distal 30% stenosis with pressure damping with catheter engagement. 2. The left anterior descending artery is transapical and has 98% stenosis at its origin and focal 40% stenosis in the mid portion. 3. The circumflex artery and its obtuse marginal branch have minor irregularity. 4. The dominant right coronary artery has minor 20% stenosis in the mid portion. 5. Aortic pressure is 98/53 mmHg. Left ventricular pressure is 97/7 mmHg. 6. Left ventricular end diastolic pressure is 16 mmHg. CONCLUSION: 1. 30% distal left main stenosis. 2. Critical 98% stenosis of the proximal left anterior descending. 3. LVEDP is 16 mmHg. RECOMMENDATION: The patient should undergo coronary artery bypass surgery. Her left anterior descending lesion is not suitable for stenting. [facility]
[2016-08-31] MEDS ORDERED: 0.9% Sodium Chloride 1,000 ML IV PRN (19:51)
[2016-08-31] MEDS ORDERED: 0.9% Sodium Chloride 250 ML IV PRN (19:51)
[2016-08-31] MEDS ORDERED: Ondansetron 2 mg/mL 2 mL Inj IVPUSH PRN (19:55)
--- NOTE | 2016-08-31 19:56 | NUR ---
Recovery/Transfer VS and groin remain stable. Denies pain. Taking po fluids. Dinner ordered at 1700. By 1840 had not arrived. Called [facility] and they stated it was not there. 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 BG 178. Report called to Sylvia Doss RN. Transported to 2006 with family and belongingsvia bed in no distress at 1945. [facility] notified of pt. transfer and to bring other belongings. Bedside check done.
[2016-09-01 00:02] VITALS: BP 140/76; PULSE 78; RESP 16; O2SAT 95
[2016-09-01] MEDS: Sodium Chloride LOK Flush 10 mL Syringe IVFLUSH SCH ×2 (00:02→09:48)
[2016-09-01 02:59] LABS: BASOPHILS % (AUTO) 0.1 % (0-3); EOSINOPHILS % (AUTO) 2.1 % (0-5); MONOCYTES % (AUTO) 6.2 % (4-12); Mean Corpuscular Volume 86.4 fL (81-100); NEUTROPHILS % (AUTO) 61.8 % (40-74); Platelet Count 260 bil/L (150-400)
[2016-09-01 03:17] LABS: Magnesium 1.6 mg/dL (1.6-2.6); Phosphorus 3.9 mg/dL (2.5-4.9)
[2016-09-01 03:50] VITALS: BP 113/61; PULSE 67; RESP 16; O2SAT 94
--- NOTE | 2016-09-01 04:16 | NUR ---
Cardiac: Telemetry sinus rhythm. Denies chest pain throughout shift. Right groin site unremarkable, soft to palpation, no drainage, no bruising observed. Bandaid dressing in place. Bilateral pedal pulse strong and equal, bilateral posterior tibial pulse strong and equal. No overt signs or symptoms of distress. VSS. Croatian speaking only, hair or beauty salon assistant utilized during shift.
[2016-09-01 08:00] VITALS: PULSE 66
--- NOTE | 2016-09-01 09:21 | DRSVH ---
CORRECTED PROCEDURE NAME ON 09/01/16 PROCEDURE: NM CARDIAC STRESS TEST SINGLE Rest and exercise myocardial perfusion SPECT with gated imaging and ejection fraction RADIOPHARMACEUTICAL: 21.9 mCi Tc-99m tetrafosmin IV at peak exercise. Ded-bld-jmdbcncq was performed . INDICATIONS: chest pain TECHNIQUE: Radiopharmaceutical was injected at peak stress test, and also at rest. SPECT images wer e obtained. SPECT myocardial perfusion images were displayed in short axis, horizontal long axis, an d vertical long axis views. Gated images were reviewed using uma information technologyQUANT software. COMPARISON: None. CARDIAC STRESS: A standard [place]ilo treadmill exercise tolerance test was performed by the patient under the supervision of an attending staff. The patient exercised for 7 minutes and 18 seconds; functional aerobic impai rment (MARIE) is +2 %. Hemodynamic data: There is normal blood pressure and heart rate response to exercise stress. Patien t achieved 93% of maximum predicted heart rate at peak exercise. Symptoms: Patient had chest pain during exercise which sounds typical for angina. Chest pain resolv ed few minutes into the recovery stage. EKG: Normal sinus rhythm at baseline with significant ST changes during exercise which slowly resolv ed during the recovery stage. FINDINGS: Raw data: There is good myocardial labeling by radiotracer. No significant motion artifacts. Left ventricle function: Gated images demonstrate normal left ventricle wall thickening. No segment al wall motion abnormality The left ventricle resting end-diastolic volume is 47 mL. Left ventricle stress ejection fraction is 80%; normal values are above 45%. Myocardial perfusion: There is a large perfusion defect involving predominantly the entire LAD flower tory with moderate intensity. Resting images are not performed. IMPRESSION: 1. Severely abnormal myocardial perfusion study. 2. There is a large perfusion defect that goes along the entire LAD territory. Due to severity of p erfusion defect, classic angina during ETT, and significant EKG changes, resting images are not requi red. 3. Highly recommend cardiology consultation to consider coronary angiogram. 4. Normal LVEF and normal LV wall motion. Dictated by: Kieran Smith Jr., M.D. on 08/29/2016 at 13:59 Approved by: Kieran Smith Jr., M.D. on 08/29/2016 at 13:59
[2016-09-01 09:37] VITALS: BP 101/64; PULSE 83; RESP 16; O2SAT 94
[2016-09-01] MEDS: Insulin LISPRO 300 Unit/3 mL Inj SUBQ SCH ×2 (09:47→11:34)
--- NOTE | 2016-09-01 11:10 | PROG NOTE ---
[address] [address] PROGRESS NOTE PATIENT: REN MENA : 1960 MR#: [id number] ADMIT: 08/28/2016 JOB ID: [id number] DATE: 08/31/2016 SUBJECTIVE: The patient underwent coronary angiogram yesterday, which demonstrated critical stenosis of the proximal left anterior descending artery. She reports having no recurrent chest discomfort. She denies orthopnea, PND, palpitation or syncope. OBJECTIVE: Temperature is 36.7, blood pressure is 101/64, pulse 67. Body weight is 57.8 kg. Neck: No jugular venous distention or carotid bruits. Lungs are clear to auscultation. Heart: First and second heart sound normal. No gallop or murmur. Abdomen: Soft, nontender. Extremities: Right groin puncture site is excellent. BLOOD TESTS: Show hemoglobin 11.5, WBC 6.8, platelet 262. Sodium 137, potassium 3.8, chloride 99, bicarb 25, BUN 12, creatinine 0.45, glucose 232. IMPRESSION: 1. Acute coronary syndrome. 2. Critical stenosis of the proximal left anterior descending. 3. Uncontrolled diabetes. 4. Hypertension. 5. Hypercholesterolemia. 6. Overweight with a BMI of 27.6 kg. PLAN: Plavix was discontinued yesterday. I have made arrangements for the patient to be transferred to [facility] for coronary artery bypass surgery with Dr. Santamaria. ANGELES
--- NOTE | 2016-09-01 11:41 | PCM.DC.MED ---
Discharge Summary Date of Service Sep 01, 2016 Dates of Hospitalization Date of Hospital Admission Aug 28, 2016 at 19:24 Date of Discharge: Sep 01, 2016 Providers: Admitting Physician: Brady aMta MD [facility]ending [facility]ician: Brady Mata MD Diagnosis at Time of Discharge Diagnosis at Time of Discharge Unstable Angina Critical stenosis proximal LAD DM HTN HLD Consultations Cardiology Procedures XRay, CTs & MRIs CXR concurrently reviewed by me no acute abnormality ECG 12 Lead Sinu73 Qwave in III, MURPHY in II,aVF<1mm, TWI v2. Flattened twave v3 Cardiac Echo Impression Echocardiogram Report Name: REN MENA Study Date: 08/29/2016 Height: 57 in Hospital Exam Location: [facility] Weight: 127 lb Gender: Female BSA: 1.5 m2 : 1960 Age: 55 yrs BP: 113/68 mmHg Reason For Study: ACS Performed By: Darron Pagan Referring Physician: JANE BERMUDEZ Interpretation Summary The left ventricle is normal in size, wall thickness, and systolic function without any focal wall motion abnormalities. The ejection fraction is estimated to be 60-65%. The right ventricle is normal in size, thickness and function. Pulmonary artery pressures cannot be estimated because of the lack of a measurable TR jet velocity. The left atrium grossly appears normal in size. The right atrium grossly appears normal in size. There is no significant valvular heart disease. The aortic root is normal size. Invasive Procedures Diagnostic Cardiac Catheterization RESULT: 1. Left main coronary artery has distal 30% stenosis with pressure damping with catheter engagement. 2. The left anterior descending artery is transapical and has 98% stenosis at its origin and focal 40% stenosis in the mid portion. 3. The circumflex artery and its obtuse marginal branch have minor irregularity. 4. The dominant right coronary artery has minor 20% stenosis in the mid portion. 5. Aortic pressure is 98/53 mmHg. Left ventricular pressure is 97/7 mmHg. 6. Left ventricular end diastolic pressure is 16 mmHg. CONCLUSION: 1. 30% distal left main stenosis. 2. Critical 98% stenosis of the proximal left anterior descending. 3. LVEDP is 16 mmHg. RECOMMENDATION: The patient should undergo coronary artery bypass surgery. Her left anterior descending lesion is not suitable for stenting. Salvador Oliva MD 08/31/16 6818 Brief History HPI Copied from Brady Mata MD "55-year-old Tongan-speaking female whom I interviewed with the help of video navigating officer history of diabetes, hypothyroidism, hyperlipidemia who presents with 3 days of intermittent chest pain. When I press her to determine whether it is when she is walking or when she is sitting or when she gets up, she states that it does not matter. Sometimes it wakes her up from her sleep that was on Wednesday, at times happens when she gets up or she feels it coming on and it can happen when she is walking but is not consistently there when she is ambulating either. The episodes are retrosternal dull not radiating anywhere and not not associated with nausea, vomiting or diaphoresis" Hospital Course Admitted 08/28/16 for unstable angina, Cardiology consulted Echo showed EF 60-65% , grossly positive NM stress test 08/29 terminated prematurely showed evidence of suspected LAD lesion, Dr. Ortiz brought patient into manager lab and found critical stenosis 95% of proximal LAD 1. Acute, active, present on admission Chest pain secondary to ACS, POA, grossly positive NM stress test 08/29 so terminated prematurely per , suspected LAD lesion, EKG-equivocal, trop [id number], no active chest pain. TTE unremarkable. - Echo showed EF 60-65% - grossly positive NM stress test 08/29 terminated prematurely showed evidence of suspected LAD lesion -Cardiac Cath 08/30/16 critical stenosis 95% of proximal LAD -asa, plavix, metoprolol 25 bid, [id number], -nitro prn for chest pain -Per Dr. Ortiz patient scheduled for transfer to [facility] to under coronary artery Bypass by Dr. Santamaria today 2. chonic, stable DM, uncontrolled on MEtformin, A1c12.5 07/09 , pt sees PCP 6mo ago, continue lispro SS, counseled on importance of glc control HTN, 150s on admission, likely diet controlled, stable HLD, continue high-intensity statin dvt ppx: HSQ Full code diet:resume cardiac diet dispo: transfer to [facility] in [place] to under coronary artery Bypass by Dr. Santamaria Today Exam Vital Signs (Last) Date Time Temp Pulse Resp B/P Pulse Ox O2 Delivery O2 Flow Rate FiO2 1/10/17 09:37 36.7 83 16 101/64 94 Room Air 08/31/16 18:00 2.00 Exam Gen.: No fevers chills weight loss weight gain, NAD Eyes: no blurring vision, no erythema HEENT: No nose/throat drainage, no pain in ears or throat, no hearing loss Cardiac: No orthopnea, PND, palpitations , pedal edema or dyspnea on exertion, + + chest pain Pulmonary: no cough, wheezing or bringing up of sputum GI: No nausea vomiting blood in the stool : no dysuria hematuria Musculoskeletal: Joint swelling no joint pain no new muscle aches or back pain Neuro: No syncope, seizures no loss of consciousness no new focal weakness, numbness or tingling Test 08/28/16 16:19 08/28/16 19:54 08/29/16 01:20 08/29/16 05:05 Hemoglobin A1c 12.5% (4.8-5.6) Hold [place] Top Tube Received (Received) Thyroid Stimulating Hormone (TSH) 1.370uIU/mL (0.450-4.500) Total Creatine Kinase 33U/L (21-215) Creatine Kinase MB 1.0ng/mL (0.0-5.3) Creatine Kinase MB % % (0.0-5.0) Troponin T 0.010ug/L (0.0-0.011) Triglycerides Level 215mg/dL (0-149) Cholesterol Level 230mg/dL (100-199) LDL Cholesterol, Calculated 149.000mg/dL (0-99) VLDL Cholesterol 43.000mg/dL HDL Cholesterol 38mg/dL (>39) Cholesterol/HDL Ratio 6.05 (0.0-4.4) Test 09/01/16 02:34 White Blood Count 6.8th/mm3 (3.8-10.1) Red Blood Count 3.96mil/mm3 (3.90-5.20) Hemoglobin 11.5g/dL (12.0-15.6) Hematocrit 34.2% (35.0-46.0) Mean Corpuscular Volume 86.4fL (81-100) Mean Corpuscular Hemoglobin 29.0pg (27.0-35.0) Mean Corpuscular Hemoglobin Concent 33.6% (32.0-37.0) Red Cell Distribution Width 12.3% (12.3-15.4) Platelet Count 260bil/L (150-400) Neutrophils (%) (Auto) 61.8% (40-74) Lymphocytes (%) (Auto) 29.5% (14-46) Monocytes (%) (Auto) 6.2% (4-12) Eosinophils (%) (Auto) 2.1% (0-5) Basophils (%) (Auto) 0.1% (0-3) Sodium Level 137mEq/L (134-144) Potassium Level 3.8mEq/L (3.5-5.2) Chloride Level 99mEq/L (97-108) Carbon Dioxide Level 25mmol/L (18-29) Blood Urea Nitrogen 12mg/dL (6-24) Creatinine 0.45mg/dL (0.57-1.00) Estimat Glomerular Filtration Rate 207mL/min (>59) Glucose Level 232mg/dL (60-99) Calcium Level 8.8mg/dL (8.5-10.1) Phosphorus Level 3.9mg/dL (2.5-4.9) Magnesium Level 1.6mg/dL (1.6-2.6) Total Bilirubin 0.3mg/dL (0.0-1.2) Aspartate Amino Transf (AST/SGOT) 40U/L (0-50) Alanine Aminotransferase (ALT/SGPT) 54U/L (0-32) Alkaline Phosphatase 65U/L (25-150) Total Protein 5.9g/dL (6.4-8.4) Albumin 3.6g/dL (3.4-5.0) Discharge Medications Discharge Medications Cholecalciferol (Vitamin D3) (Vitamin D3) 2,000 Unit Capsule 2,000 UNITS PO DAILY (Reported) Glipizide (Glipizide) 5 Mg Tablet 5 MG PO QAM (Reported) Levothyroxine (Levothyroxine) 137 Mcg Tablet 137 MCG PO DAILY (Reported) Lovastatin (Lovastatin) 40 Mg Tablet 40 MG PO QPM (Reported) Metformin (Glucophage) 1,000 Mg Tablet 1,000 MG PO BIDWM (Reported) Followup Plan Disposition: Transfer to [facility] to care of Dr. Santamaria to undergo Coronary artery bypass surgery Follow-up plan Follow up with brazer helper induction in two weeks Discharge Diet: Other (NPO ) Discharge Activity: Limited until seen by PCP Follow-up with PCP in: 2 weeks Time spent Greater than 30 minutes was spent in preparation of discharge with greater than 50% of that time dedicated to patient counseling and coordination of care. . Attending Statement The patient was seen and examined together with Dr. Price on 09/01/2016 and I agree with the history, exam and plan as outlined in the note above. . copies to: [facility] FARHANA PRICE DO Sep 01, 2016 10:36 Husam Morris MD Sep 04, 2016 15:53
[2016-09-01 12:33] VITALS: BP 128/75; PULSE 69; RESP 20; O2SAT 96
--- NOTE | 2016-09-01 13:07 | NUR ---
Transfer She transferred from [facility] [address] She was taken by [facility] transport. Paperwork given to the carpenter's assistant. She took her cellphone and phone hotel server with her. Report called to MONICA Rome at [facility] and was told she would arrive about 1345. Report given to carpenter's assistant. Her was given the address to go and meet her with the rest of her belongings. If further information needs to be called to [facility] the unit phone number is .
== END 2016-09-01 12:56 | disposition short-term general hospital (02) | DRG 287 ==
LOC: SED 15:37 → OBSVTOIN 19:24 → MPC 19:24 → PCC 08-31 18:33
PROVIDERS: ADMIT Hospitalist; ATTEND Hospitalist
PROC: 4A023N7 Measurement of Cardiac Sampling and Pressure, Left Heart, Percutaneous Approach (ICD-10-PCS; principal; 2016-08-31)
PROC: B211YZZ Fluoroscopy of Multiple Coronary Arteries using Other Contrast (ICD-10-PCS; 2016-08-31)
DX: I25.110 Atherosclerotic heart disease of native coronary artery with unstable angina pectoris (principal); E11.65 Type 2 diabetes mellitus with hyperglycemia; I10 Essential (primary) hypertension; E78.5 Hyperlipidemia, unspecified; E66.3 Overweight; Z68.27 Body mass index [BMI] 27.0-27.9, adult; Z79.84 Long term (current) use of oral hypoglycemic drugs